=== PATIENT | male | born 1990 | race Hispanic/Latino ===

== ENCOUNTER 2017-06-21 17:32 | Inpatient (IN) | payer BC ==
[~2017-06-21] VITALS: Ht 170.2 cm; Wt 98.5 kg
[~2017-06-21 17:32] MED LIST: AZITHROMYCIN250 MG PO; LORATADINE10 M1 PO; MUCINEX DM1 TA1 OR; NASONEX50 MCG/AC; NEXIUM40 M1 OR; NO MEDS; PROMETHAZINE25 MG OR; ZOFRAN ODT4 MG OR
[2017-06-21] MEDS ORDERED: KEFLEX500 MG PO (17:51)
[2017-06-21] MEDS ORDERED: BACTRIM DS1 TAB PO (17:51)
[2017-06-21] MEDS ORDERED: IBUPROFEN600 MG PO (17:52)
[2017-06-21] MEDS ORDERED: VICODIN1 TA1 PO (17:53)
[2017-06-21 19:00] LABS: HEMATOCRIT 43.9 % (39.0-50.0); HEMOGLOBIN 14.9 g/dl (14.0-18.0); IMMATURE GRANULOCYTES 0.7 % (0.0-1.0); MEAN CELL VOLUME 82.7 fL CALC (80.0-100.0); MEAN CORPUSCULAR HGB 28.1 pG CALC (26.0-32.0); MEAN CORPUSCULAR HGB CONC 33.9 g/L CALC (32.0-36.0); NEUT# 16.34 thou/uL (1.82-7.42); RED BLOOD COUNT 5.31 mill/uL (4.70-6.10); RED CELL DISTRI WIDTH 12.2 % (11.5-15.5)
[2017-06-21 19:06] LABS: ALBUMIN 4.6 g/dL (3.2-5.0); ALKALINE PHOSPHATASE 102 u/l (38-126); ANION GAP 19 (6-22 (CALC)); BILIRUBIN, TOTAL 1.6 mg/dL (0.0-1.4); BUN 11 mg/dL (9-20); BUN/CREATININE RATIO 13 (12-20 (CALC)); CALCIUM 9.6 mg/dL (8.4-10.2); CARBON DIOXIDE 22 mmol/l (22-30); CHLORIDE 103 mmol/l (95-108); CREATININE 0.9 mg/dL (0.7-1.3); GFR > 60 ML/MIN (>=60 (CALC)); GFR FOR AFR.AMER. > 60 ML/MIN (>=60 (CALC)); GLUCOSE 110 mg/dL (75-110); POTASSIUM 3.8 mmol/l (3.5-5.1); SGOT/AST 44 u/l (17-59); SGPT/ALT 88 u/l (21-72); SODIUM 141 mmol/l (137-146); TOTAL PROTEIN 8.3 g/dL (6.3-8.2)
[2017-06-21 20:35] VITALS: BP 115/68
[2017-06-22 04:15] VITALS: BP 115/69
[2017-06-22 07:31] LABS: HEMATOCRIT 37.9 % (39.0-50.0); HEMOGLOBIN 12.9 g/dl (14.0-18.0); IMMATURE GRANULOCYTES 0.4 % (0.0-1.0); MEAN CORPUSCULAR HGB 28.6 pG CALC (26.0-32.0); NEUT# 11.29 thou/uL (1.82-7.42); RED BLOOD COUNT 4.51 mill/uL (4.70-6.10); RED CELL DISTRI WIDTH 12.2 % (11.5-15.5)
[2017-06-22 07:46] LABS: ANION GAP 15 (6-22 (CALC)); BUN 8 mg/dL (9-20); BUN/CREATININE RATIO 12 (12-20 (CALC)); CALCIUM 8.3 mg/dL (8.4-10.2); CARBON DIOXIDE 23 mmol/l (22-30); CHLORIDE 105 mmol/l (95-108); CREATININE 0.7 mg/dL (0.7-1.3); GFR > 60 ML/MIN (>=60 (CALC)); GFR FOR AFR.AMER. > 60 ML/MIN (>=60 (CALC)); GLUCOSE 93 mg/dL (75-110); POTASSIUM 3.6 mmol/l (3.5-5.1); SODIUM 140 mmol/l (137-146)
[2017-06-22 09:20] VITALS: BP 127/77
[2017-06-22 09:30] VITALS: BP 127/77
[2017-06-22 16:00] VITALS: BP 142/80
[2017-06-22 19:00] VITALS: BP 125/80
[2017-06-23 05:03] VITALS: BP 115/72
[2017-06-23 09:22] VITALS: BP 127/76
[2017-06-23 15:35] VITALS: BP 125/67
== END 2017-06-23 18:50 | disposition home or self-care (01) | DRG 603 ==
LOC: ED 17:32 → ED-I 19:20 → ED 19:51 → MS2 19:52
PROVIDERS: Emergency Medicine; Family Medicine; ADMIT Internal Medicine; ATTEND Internal Medicine
PROC: 0H9DXZZ Drainage of Right Lower Arm Skin, External Approach (ICD-10-PCS; principal; 2017-06-21)
PROC: 0H9DXZZ Drainage of Right Lower Arm Skin, External Approach (ICD-10-PCS; 2017-06-22)
PROC: 3E0234Z Introduction of Serum, Toxoid and Vaccine into Muscle, Percutaneous Approach (ICD-10-PCS; 2017-06-23)
DX: L02.413 Cutaneous abscess of right upper limb (principal); B95.62 Methicillin resistant Staphylococcus aureus infection as the cause of diseases classified elsewhere; L03.113 Cellulitis of right upper limb; Z23 Encounter for immunization
CPT/HCPCS: J0878; J1650; Q9967